=== PATIENT | male | born 1975 | race Caucasian/White ===

== ENCOUNTER → 2019-12-12 09:53 | Outpatient (BNVA) | payer MEDICARE, MEDICAID, SELFPAY | PROVIDERS: Family Provider Registered Nurse; PCP Registered Nurse; Visit Provider Anesthesiology | DX: G89.29 Other chronic pain (principal); M54.5 Low back pain; M54.2 Cervicalgia; Z79.891 Long term (current) use of opiate analgesic | CPT/HCPCS: 99214 ==

== ENCOUNTER → 2020-02-07 08:11 | Outpatient (BNVA) | payer MEDICARE, MEDICAID, SELFPAY | PROVIDERS: Family Provider Registered Nurse; PCP Registered Nurse; Visit Provider Nurse Practitioner | DX: G89.29 Other chronic pain (principal); M54.9 Dorsalgia, unspecified; M54.2 Cervicalgia; Z79.891 Long term (current) use of opiate analgesic | CPT/HCPCS: 99213 ==

== ENCOUNTER → 2020-04-15 10:03 | Outpatient (BNVA) | payer MEDICARE, MEDICAID, SELFPAY | PROVIDERS: Family Provider Registered Nurse; PCP Registered Nurse; Visit Provider Anesthesiology | DX: G89.29 Other chronic pain (principal); M54.5 Low back pain; M54.2 Cervicalgia; Z79.1 Long term (current) use of non-steroidal anti-inflammatories (NSAID); Z79.891 Long term (current) use of opiate analgesic | CPT/HCPCS: 99213; 99214 ==

== ENCOUNTER → 2020-06-17 09:59 | Outpatient (BNVA) | payer MEDICARE, MEDICAID, SELFPAY | PROVIDERS: Family Provider Registered Nurse; PCP Registered Nurse; Visit Provider Nurse Practitioner | DX: G89.29 Other chronic pain (principal); M54.5 Low back pain; M54.2 Cervicalgia; Z79.891 Long term (current) use of opiate analgesic | CPT/HCPCS: 99213; 99214 ==

== ENCOUNTER → 2020-07-17 08:05 | Outpatient (BNVA) | payer MEDICARE, MEDICAID, SELFPAY | PROVIDERS: Family Provider Registered Nurse; PCP Registered Nurse; Visit Provider Anesthesiology | DX: G89.29 Other chronic pain (principal); M54.5 Low back pain; M54.2 Cervicalgia; Z79.891 Long term (current) use of opiate analgesic | CPT/HCPCS: 99213; 99214 ==

== ENCOUNTER → 2020-09-19 08:21 | Outpatient (BNVA) | payer MEDICARE, MEDICAID, SELFPAY | PROVIDERS: Family Provider Registered Nurse; PCP Registered Nurse; Visit Provider Anesthesiology | DX: G89.29 Other chronic pain (principal); M54.5 Low back pain; M54.2 Cervicalgia; Z79.891 Long term (current) use of opiate analgesic | CPT/HCPCS: 99213; 99214 ==

== ENCOUNTER → 2020-11-27 08:58 | Outpatient (BNVA) | payer MEDICARE, MEDICAID, SELFPAY | PROVIDERS: Family Provider Registered Nurse; PCP Registered Nurse; Visit Provider Anesthesiology | DX: G89.29 Other chronic pain (principal); M54.5 Low back pain; M54.2 Cervicalgia; Z79.891 Long term (current) use of opiate analgesic | CPT/HCPCS: 99214 ==

== ENCOUNTER → 2021-02-05 08:16 | Outpatient (BNVA) | payer MEDICARE, MEDICAID, SELFPAY | PROVIDERS: Family Provider Registered Nurse; PCP Registered Nurse; Visit Provider Anesthesiology | DX: G89.29 Other chronic pain (principal); M54.5 Low back pain; M54.2 Cervicalgia; Z79.891 Long term (current) use of opiate analgesic | CPT/HCPCS: 99214 ==

== ENCOUNTER → 2021-04-02 08:05 | Outpatient (BNVA) | payer MEDICARE, MEDICAID, SELFPAY | PROVIDERS: Family Provider Registered Nurse; PCP Registered Nurse; Visit Provider Anesthesiology | DX: G89.29 Other chronic pain (principal); M54.5 Low back pain; M54.2 Cervicalgia; Z79.891 Long term (current) use of opiate analgesic | CPT/HCPCS: 99214 ==

== ENCOUNTER → 2024-01-31 14:51 | Outpatient (BNVA) | payer MEDICARE, MEDICAID, SELFPAY | PROVIDERS: Family Provider Registered Nurse; PCP Registered Nurse; Visit Provider Registered Nurse | DX: R53.83 Other fatigue (principal); H53.8 Other visual disturbances; E78.5 Hyperlipidemia, unspecified | CPT/HCPCS: 80053; 80061; 84443; 85025 ==

== ENCOUNTER 2025-06-14 17:05 | Outpatient (CLI) | payer MEDICARE, MEDICAID, SELFPAY ==
--- NOTE | 2025-06-14 17:15 | USR_ITS ---
PROCEDURE INFORMATION: Exam: US Soft Tissue Head and Neck, Soft Tissue Exam date and time: 06/14/2025 5:22 PM Age: 49 years old Clinical indication: Mass, lump, or swelling in neck; Left; Additional info: R22.1 - localized swelling, mass and lump, neck TECHNIQUE: Imaging protocol: Real-time ultrasound scan of the head and neck with image documentation. Exam focused on the soft tissue in the region of clinical concern. COMPARISON: No relevant prior studies available. FINDINGS: Soft tissues: Ultrasound was obtained of the left neck cervical chain per patient directed left lump. A rounded to oval-shaped mildly heterogeneous though predominant hypoechoic focus with peripheral hyperechoic margin is seen in the left cervical chain, measuring 4 x 3.3 x 2.7 cm. This appears hypervascular. An additional smaller rounded hypoechoic focus is seen in the left cervical chain measuring 1.4 x 1 x 1.1 cm appearing fairly well-defined and not hypervascular and more homogeneous. Comparison views of the right cervical chain appear unremarkable. US/US soft tissue head neck [id number] IMPRESSION: 1. Large rounded mildly heterogeneous though predominant hypoechoic mass with fairly well-defined peripheral hyperechoic margin is seen in the left cervical chain corresponding to patient directed lump in the left neck, demonstrating hypervascularity. This most likely represents abnormal appearing enlarged lymph node. Consider tissue sampling. 2. An additional smaller rounded hypoechoic focus in the left cervical chain of 1.4 x 1 x 1.1 cm with more homogeneous echotexture and without hypervascularity likely represents an adjacent small lymph node.
== END 2025-06-14 17:06 | disposition home or self-care (01) ==
LOC: RAD 17:09
PROVIDERS: Family Provider Registered Nurse; PCP Registered Nurse; Visit Provider Registered Nurse
DX: R22.1 Localized swelling, mass and lump, neck (principal)
CPT/HCPCS: 76536

== ENCOUNTER 2025-06-20 15:22 | Outpatient (CLI) | payer MEDICARE, MEDICAID, SELFPAY ==
--- NOTE | 2025-06-20 15:26 | MRR_ITS ---
PROCEDURE INFORMATION: Exam: MR Neck Without and With Contrast Exam date and time: 06/20/2025 3:37 PM Age: 49 years old Clinical indication: Left sided neck mass for a few weeks; Neoplasm uncertain behavior tongue, stat TECHNIQUE: Imaging protocol: Magnetic resonance imaging of the neck without and with contrast. Contrast material: MULTIHANCE; Contrast volume: 20 ml; Contrast route: INTRAVENOUS (IV); COMPARISON: US soft tissue head neck [id number] 06/14/2025 5:22 PM FINDINGS: Pharynx: 2 x 1.9 x 3.5 cm homogeneously enhancing mass with nodular contours along the left lateral wall of the oropharynx is projecting between the inferior aspect of the left palatine tonsil superiorly and the left lingual tonsil inferiorly. The right palatine tonsil is unremarkable. The nasopharynx is unremarkable. The hypopharynx is unremarkable. Larynx: Unremarkable. Thyroid: Unremarkable. Salivary glands: Unremarkable. Vasculature: Unremarkable. Lymph nodes: 4 x 2.8 x 3 cm homogeneously enhancing mass in the left upper neck is suggestive of malignant lymphadenopathy in the level 2. 2.3 x 1.5 x 1 cm right upper jugular lymph node in the level 2 (series 1301, image 18, series 1201, image 13) is nonspecific, not significantly abnormal by size criteria. Bones/joints: 1 cm sharply circumscribed nodule of increased T2 signal with mixed partially hyperintense T1 signal in the right aspect of C4 is suggestive of hemangioma. Soft tissues: Unremarkable. MR/MR orbit face neck wo/w* [id number] IMPRESSION: About 3.5 cm mass in the left side of the oropharynx and 4 cm left level 2 enlarged lymph node are suggestive of primary malignancy and aldair metastasis. The right level 2 lymph node is nonspecific, not significantly abnormal by size criteria with a short axis of 1 cm.
[2025-06-20] MEDS: gadobenate dimeglumine 20 mL vial IV (16:20)
== END 2025-06-20 15:23 | disposition home or self-care (01) ==
LOC: RAD 15:23
PROVIDERS: Family Provider Registered Nurse; PCP Registered Nurse; Visit Provider Specialist
DX: D37.02 Neoplasm of uncertain behavior of tongue (principal); R59.0 Localized enlarged lymph nodes
CPT/HCPCS: 70543

== ENCOUNTER 2025-07-05 12:44 | Outpatient (CLI) | payer MEDICARE, MEDICAID, SELFPAY ==
--- NOTE | 2025-07-05 12:46 | PETR_ITS ---
PROCEDURE INFORMATION: Exam: PET/CT Skull Base to Mid-thigh Exam date and time: 07/05/2025 1:35 PM Age: 49 years old Clinical indication: Abnormal findings; Malignant neoplasm lingual tonsil. LABS AND CLINICAL REPORTS: Glucose: 91 mg/dl Treatment strategy for malignancy (PET staging): Initial Staging (PI) TECHNIQUE: Imaging protocol: Following at least four-hour fasting and following the injection of radiopharmaceutical, low dose CT images were obtained. Then, PET images were obtained. Attenuation corrected images were constructed using the CT scan. Fused images of PET and CT were reviewed. The standardized uptake values (SUV) reported below are maximum values within a region of interest, expressed in gm/ml. Exam includes orbital meatal line to mid-thigh. SUV normalization method: BodyWeight Radiopharmaceutical: 11.2 mCi F-18 FDG (Fluorodeoxyglucose), IV. Time of imaging post radiopharmaceutical administration: 45 minutes Injection site: R AC COMPARISON: MR orbit face neck wo/w* [id number] 06/20/2025 3:37 PM FINDINGS: Brain: On the nondedicated limited brain images there is no abnormal distribution of the radiotracer in the collazo and white matter. Pharynx: Primary malignancy in the left side of the lingual tonsil noted as about 2.4 x 1.6 cm area with high uptake of 18.7 SUV adjacent to the left side of the base of tongue. There is normal physiologic uptake in the palatine tonsils and in the nasopharynx. Larynx: Normal distribution of the radiotracer in laryngeal structures. Lungs, pleura and trachea: No abnormal uptake. Small calcified granulomas in the left lower lobe. No suspicious lung nodules or masses. No pleural effusion. Heart: Normal physiologic uptake. Mild cardiomegaly. No coronary artery calcification is visualized. There is no pericardial effusion. Mediastinal space: No abnormal uptake. Liver: Normal size without abnormal radiotracer uptake. Gallbladder and biliary ducts: No abnormal uptake. Pancreas: Normal distribution of radiotracer. Spleen: Normal size without abnormal radiotracer uptake. Adrenal glands: No abnormal uptake. Kidneys and ureters: Normal physiologic uptake. 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 Stomach and bowel: No abnormal uptake. Vasculature: No abnormal uptake. Lymph nodes: 3.3 x 3 cm left upper neck level 2 lymph node measures 13.5 SUV representing aldair metastasis. No FDG avid lymphadenopathy in the chest, abdomen, pelvis, and extremities. There is sequela of exposure to granulomatous disease with calcified granulomas within a right mediastinal and left hilar lymph nodes. Skeleton: No abnormal uptake in the visualized axial and appendicular skeleton. Status post L4-L5 fusion with bilateral transpedicular internal fixation. Soft tissues: No abnormal uptake in the visualized head, neck, chest, abdomen, pelvis, and extremities. METRICS: Mediastinal blood pool maximal uptake is 2.8 SUV. Liver maximal uptake is 0.9 SUV. PET/PET skull to thigh INIT [id number] IMPRESSION: Primary malignant mass in the left side of the lingual tonsil measures 18.7 SUV. Left upper neck metastatic lymph node in the level 2 measures 3.3 x 3 cm/13.5 SUV. No evidence of distant FDG avid metastatic disease outside of the neck
== END 2025-07-05 12:45 | disposition home or self-care (01) ==
LOC: RAD 12:44
PROVIDERS: Family Provider Registered Nurse; PCP Registered Nurse; Visit Provider Specialist
DX: C02.4 Malignant neoplasm of lingual tonsil (principal); J98.4 Other disorders of lung
CPT/HCPCS: 78815; A9552